=== PATIENT | female | born 1930 | race Caucasian/White ===

== ENCOUNTER 2017-01-07 09:55 | Outpatient (CLI) | payer OTHER ==
[~2017-01-07 09:55] MED LIST: ESCI20TA PO; LIP20 PO; LISI-600 PO
== END 2017-01-07 21:08 | disposition home or self-care (01) ==
LOC: SMA 09:55
PROVIDERS: ATTEND Obstetrics & Gynecology
DX: Z12.31 Encounter for screening mammogram for malignant neoplasm of breast (principal)
CPT/HCPCS: G0202

== ENCOUNTER 2019-01-08 03:34 | Inpatient (IN) | payer OTHER ==
[~2019-01-08] VITALS: Ht 152.4 cm; Wt 41.5 kg
[2019-01-08] VITALS (7 sets, daily range): BP systolic 124–163
[2019-01-08] MEDS ORDERED: CLOP300T2 PO (03:54)
[2019-01-08] MEDS ORDERED: CALC-823 PO (03:54)
[2019-01-08] MEDS ORDERED: LIP10 PO (03:54)
[2019-01-08] MEDS ORDERED: LAMO25TA PO (03:54)
[2019-01-08] MEDS ORDERED: COR12.5 PO (03:54)
[2019-01-08] MEDS ORDERED: FERR140T2 PO (03:54)
[2019-01-08] MEDS ORDERED: NOR10 PO (03:54)
[2019-01-08] MEDS ORDERED: LEVE1000 PO (03:54)
[2019-01-08] MEDS ORDERED: MULT-1117 PO (03:54)
[2019-01-08] MEDS ORDERED: MEGE40TA PO (03:54)
[2019-01-08] MEDS ORDERED: FURO20TA4 PO (04:06)
[2019-01-08] MEDS ORDERED: IPRATROPIUM/ALBUTEROL SULFATE 3 ML AMPUL.NEB (DUONEB) INH ONE (04:30)
[2019-01-08] MEDS ORDERED: methylPREDNISolone SOD SUCC/PF 62.5 MG/ML VIAL IVP ONE ×2 (04:30→10:45)
[2019-01-08 04:32] LABS: BASOPHILS # (AUTO) 0.1 K/uL (0.0-0.2); BASOPHILS % (AUTO) 0.6 % (0.0-2.0); EOSINOPHILS # (AUTO) 0.4 K/uL (0.0-0.4); EOSINOPHILS % (AUTO) 2.5 % (0.0-4.0); HEMATOCRIT 22.3 % (36-48); HEMOGLOBIN 7.5 g/dL (12.0-16.0); LYMPHOCYTES # (AUTO) 0.9 K/uL (1.0-5.5); LYMPHOCYTES % (AUTO) 5.7 % (20.5-51.5); MEAN CORPUSCULAR HEMOGLOBIN 27 pg (27-31); MEAN CORPUSCULAR HGB CONC 34 % (32-36); MEAN CORPUSCULAR VOLUME 81 fL (79.0-98.0); MONOCYTES # (AUTO) 2.5 K/uL (0.0-1.0); MONOCYTES % (AUTO) 16.6 % (1.7-9.3); NEUTROPHILS # (AUTO) 11.4 K/uL (1.8-7.7); NEUTROPHILS % (AUTO) 74.6 % (40.0-70.0); PLATELET COUNT (AUTO) 192 K/uL (130-430); RED BLOOD CELL COUNT(AUTO) 2.75 MIL/uL (4.2-6.2); RED CELL DISTRIBUTION WIDTH 14.8 % (9.0-15.0); WHITE BLOOD COUNT (AUTO) 15.3 K/uL (4.8-10.8)
[2019-01-08 04:44] LABS: INR 0.9 (0.8-1.2); PROTHROMBIN TIME 9.6 SECS (9.5-12.5)
[2019-01-08] MEDS ORDERED: PIPERACILLIN/TAZO 3.375 GM in NS 50 ML IV ONE (04:45)
[2019-01-08] MEDS ORDERED: PIPERACILLIN/TAZOBACTAM 3.375 GM/VIAL (ZOSYN) IV ONE (04:56)
[2019-01-08 05:02] LABS: ALANINE AMINOTRANSFERASE 31 U/L (12-78); ALBUMIN 2.8 g/dL (3.4-4.8); ANION GAP 12 (5-15); ASPARTATE AMINOTRANSFERASE 21 U/L (10-37); CALCIUM 9.6 mg/dL (8.4-11.0); CHLORIDE 98 mmol/L (98-107); CREATININE 1.93 mg/dL (0.55-1.30); GLUCOSE 112 mg/dL (70-99); POTASSIUM 3.6 mmol/L (3.5-5.1); SODIUM SERUM 135 mmol/L (136-145); TOTAL BILIRUBIN 0.4 mg/dL (0.0-1.0)
[2019-01-08 05:25] LABS: UREA NITROGEN, BLOOD 35 mg/dL (8-21)
[2019-01-08] MEDS ORDERED: NACL 0.9% 1,000 ML IV ONE (05:30)
[2019-01-08] MEDS ORDERED: VANCOMYCIN HCL 1,000 MG in NS 250 ML IV ONE (05:30)
[2019-01-08] MEDS ORDERED: VANCOMYCIN HCL 1000 MG/VIAL IV ONE (05:40)
[2019-01-08] MEDS ORDERED: *HEPARIN PER PHARMACY XX PRN (06:15)
[2019-01-08] MEDS ORDERED: ALBUTEROL SULFATE 0.083% 2.5 MG/3 ML VIAL.NEB INH SCH (07:00)
[2019-01-08] MEDS ORDERED: HEPARIN SODIUM,PORCINE 5000 UNITS/ML VIAL IV ONE (08:15)
[2019-01-08] MEDS ORDERED: HEPARIN SODIUM,PORCINE 2000 UNITS/0.4 ML BOLUS IVP PRN (08:15)
[2019-01-08] MEDS ORDERED: HEPARIN SODIUM,PORCINE 3000 UNITS/0.6 ML BOLUS IVP PRN (08:15)
[2019-01-08] MEDS ORDERED: HEPARIN SODIUM,PORCINE 5000 UNITS/ML VIAL SUBCUT ONE (08:15)
[2019-01-08] MEDS ORDERED: FUROSEMIDE 20 MG/2 ML VIAL IVP ONE (09:45)
[2019-01-08] MEDS ORDERED: IPRATROPIUM BROM 0.5 MG/2.5 ML VIAL.NEB (ATROVENT) INH SCH (09:45)
[2019-01-08] MEDS ORDERED: IPRATROPIUM BROM 0.5 MG/2.5 ML VIAL.NEB (ATROVENT) INH PRN (09:45)
[2019-01-08] MEDS ORDERED: ALBUTEROL SULFATE 0.083% 2.5 MG/3 ML VIAL.NEB INH PRN (09:45)
[2019-01-08] MEDS: HEPARIN 25,000 UNITS in 250 ML PREMIX IV PRN ×2 (10:34→17:52)
[2019-01-08] MEDS: cefTRIAXone 1 GM in D5W 50 ML IV SCH (10:56)
[2019-01-08] MEDS ORDERED: CARVEDILOL 12.5 MG TABLET (COREG) PO ONE (11:00)
[2019-01-08] MEDS ORDERED: levETIRAcetam 500 MG TABLET PO ONE (11:00)
[2019-01-08] MEDS ORDERED: amLODIPine BESYLATE 10 MG TABLET PO ONE (11:00)
[2019-01-08] MEDS ORDERED: LamoTRIgine 25 MG TABLET PO ONE (11:00)
[2019-01-08] MEDS: AZITHROMYCIN 500 MG in NS 250 ML IV SCH (11:43)
[2019-01-08] MEDS: IPRATROPIUM BROM 0.5 MG/2.5 ML VIAL.NEB (ATROVENT) INH SCH ×2 (13:48→19:16)
[2019-01-08] MEDS: ALBUTEROL SULFATE 0.083% 2.5 MG/3 ML VIAL.NEB INH SCH ×2 (13:48→19:16)
[2019-01-08] MEDS: methylPREDNISolone SOD SUCC/PF 62.5 MG/ML VIAL IVP SCH ×2 (14:18→22:11)
[2019-01-08] MEDS: LamoTRIgine 25 MG TABLET PO SCH (20:49)
[2019-01-08] MEDS: levETIRAcetam 500 MG TABLET PO SCH (20:50)
[2019-01-08] MEDS: CARVEDILOL 12.5 MG TABLET (COREG) PO SCH (20:50)
[2019-01-09 00:20] VITALS: BP_SYST 117
[2019-01-09] MEDS: ALBUTEROL SULFATE 0.083% 2.5 MG/3 ML VIAL.NEB INH SCH ×4 (00:44→19:48)
[2019-01-09] MEDS: IPRATROPIUM BROM 0.5 MG/2.5 ML VIAL.NEB (ATROVENT) INH SCH ×4 (00:45→19:48)
[2019-01-09 02:46] LABS: TOTAL IRON BIND. CAPACITY 238 ug/dL (250-450)
[2019-01-09] MEDS: methylPREDNISolone SOD SUCC/PF 62.5 MG/ML VIAL IVP SCH (06:08)
[2019-01-09 06:53] LABS: BASOPHILS % (AUTO) 0.2 % (0.0-2.0); EOSINOPHILS % (AUTO) 0.1 % (0.0-4.0); LYMPHOCYTES # (AUTO) 0.4 K/uL (1.0-5.5); LYMPHOCYTES % (AUTO) 2.6 % (20.5-51.5); MEAN CORPUSCULAR HEMOGLOBIN 27 pg (27-31); MEAN CORPUSCULAR HGB CONC 34 % (32-36); MEAN CORPUSCULAR VOLUME 81 fL (79.0-98.0); MONOCYTES # (AUTO) 1.2 K/uL (0.0-1.0); MONOCYTES % (AUTO) 7.9 % (1.7-9.3); NEUTROPHILS # (AUTO) 13.6 K/uL (1.8-7.7); PLATELET COUNT (AUTO) 176 K/uL (130-430); RED BLOOD CELL COUNT(AUTO) 2.32 MIL/uL (4.2-6.2); RED CELL DISTRIBUTION WIDTH 14.6 % (9.0-15.0); WHITE BLOOD COUNT (AUTO) 15.3 K/uL (4.8-10.8)
[2019-01-09 06:55] LABS: ALANINE AMINOTRANSFERASE 25 U/L (12-78); ALBUMIN 2.5 g/dL (3.4-4.8); ANION GAP 10 (5-15); ASPARTATE AMINOTRANSFERASE 19 U/L (10-37); CALCIUM 8.1 mg/dL (8.4-11.0); CHLORIDE 98 mmol/L (98-107); CREATININE 1.99 mg/dL (0.55-1.30); GLUCOSE 146 mg/dL (70-99); LACTATE DEHYDROGENASE 219 U/L (81-234); POTASSIUM 3.8 mmol/L (3.5-5.1); SODIUM SERUM 130 mmol/L (136-145); THYROID STIMULATING HORMONE 1.14 uIu/mL (0.34-4.82); TOTAL BILIRUBIN 0.3 mg/dL (0.0-1.0); UREA NITROGEN, BLOOD 42 mg/dL (8-21)
[2019-01-09 07:14] LABS: HEMOGLOBIN 6.3 g/dL (12.0-16.0)
[2019-01-09 07:15] LABS: HEMATOCRIT 18.8 % (36-48)
[2019-01-09 08:07] LABS: NEUTROPHILS % (AUTO) 89.2 % (40.0-70.0)
[2019-01-09 08:19] VITALS: BP_SYST 145
[2019-01-09] MEDS: ATORVASTATIN 10 MG TABLET PO SCH (08:52)
[2019-01-09] MEDS: LamoTRIgine 25 MG TABLET PO SCH ×2 (08:52→21:40)
[2019-01-09] MEDS: levETIRAcetam 500 MG TABLET PO SCH ×2 (08:52→21:40)
[2019-01-09] MEDS: FERROUS SULFATE 140 MG TABLET.ER PO SCH (08:52)
[2019-01-09] MEDS: amLODIPine BESYLATE 10 MG TABLET PO SCH (08:53)
[2019-01-09] MEDS: cefTRIAXone 1 GM in D5W 50 ML IV SCH (08:53)
[2019-01-09] MEDS: CARVEDILOL 12.5 MG TABLET (COREG) PO SCH ×2 (08:53→21:40)
[2019-01-09] MEDS: CLOPIDOGREL BISULFATE 75 MG TABLET PO SCH (09:00)
[2019-01-09] MEDS: AZITHROMYCIN 500 MG in NS 250 ML IV SCH (09:58)
[2019-01-09] MEDS ORDERED: FUROSEMIDE 40 MG/4 ML VIAL IVP ONE (10:15)
[2019-01-09 12:21] VITALS: BP_SYST 100
[2019-01-09 15:37] LABS: HEMATOCRIT 24.6 % (36-48); HEMOGLOBIN 8.3 g/dL (12.0-16.0); MEAN CORPUSCULAR HEMOGLOBIN 28 pg (27-31); MEAN CORPUSCULAR HGB CONC 34 % (32-36); MEAN CORPUSCULAR VOLUME 82 fL (79.0-98.0); PLATELET COUNT (AUTO) 184 K/uL (130-430); RED BLOOD CELL COUNT(AUTO) 3.01 MIL/uL (4.2-6.2); RED CELL DISTRIBUTION WIDTH 15.1 % (9.0-15.0); WHITE BLOOD COUNT (AUTO) 16.7 K/uL (4.8-10.8)
[2019-01-09 16:05] VITALS: BP_SYST 136
[2019-01-09 16:59] LABS: BAND % (MANUAL) 3 % (0-6); BASOPHILS % (MANUAL) 0 % (0-2); EOSINOPHILS % (MANUAL) 0 % (0-7); LYMPHOCYTES % (MANUAL) 0 % (20-46); MONOCYTES % (MANUAL) 7 % (0-11)
[2019-01-09] MEDS: methylPREDNISolone SOD SUCC 40 MG/ML VIAL IVP SCH (18:16)
[2019-01-09 20:00] VITALS: BP_SYST 142
[2019-01-10 00:11] VITALS: BP_SYST 133
[2019-01-10] MEDS: ALBUTEROL SULFATE 0.083% 2.5 MG/3 ML VIAL.NEB INH SCH ×4 (00:56→20:05)
[2019-01-10] MEDS: IPRATROPIUM BROM 0.5 MG/2.5 ML VIAL.NEB (ATROVENT) INH SCH ×4 (00:57→20:05)
[2019-01-10] MEDS: methylPREDNISolone SOD SUCC 40 MG/ML VIAL IVP SCH (06:26)
[2019-01-10 07:10] LABS: BASOPHILS % (AUTO) 0.2 % (0.0-2.0); EOSINOPHILS % (AUTO) 0.2 % (0.0-4.0); HEMOGLOBIN 8.4 g/dL (12.0-16.0); LYMPHOCYTES # (AUTO) 0.6 K/uL (1.0-5.5); LYMPHOCYTES % (AUTO) 3.2 % (20.5-51.5); MEAN CORPUSCULAR HEMOGLOBIN 28 pg (27-31); MEAN CORPUSCULAR HGB CONC 34 % (32-36); MEAN CORPUSCULAR VOLUME 82 fL (79.0-98.0); MONOCYTES # (AUTO) 1.9 K/uL (0.0-1.0); MONOCYTES % (AUTO) 10.7 % (1.7-9.3); NEUTROPHILS # (AUTO) 14.9 K/uL (1.8-7.7); PLATELET COUNT (AUTO) 183 K/uL (130-430); RED BLOOD CELL COUNT(AUTO) 3.05 MIL/uL (4.2-6.2); RED CELL DISTRIBUTION WIDTH 14.9 % (9.0-15.0); WHITE BLOOD COUNT (AUTO) 17.4 K/uL (4.8-10.8)
[2019-01-10 07:24] LABS: ANION GAP 12 (5-15); CALCIUM 8.1 mg/dL (8.4-11.0); CHLORIDE 99 mmol/L (98-107); CREATININE 2.19 mg/dL (0.55-1.30); GLUCOSE 118 mg/dL (70-99); POTASSIUM 4.3 mmol/L (3.5-5.1); SODIUM SERUM 133 mmol/L (136-145); UREA NITROGEN, BLOOD 52 mg/dL (8-21)
[2019-01-10 07:55] LABS: NEUTROPHILS % (AUTO) 85.7 % (40.0-70.0)
[2019-01-10] MEDS: cefTRIAXone 1 GM in D5W 50 ML IV SCH (08:25)
[2019-01-10] MEDS: amLODIPine BESYLATE 10 MG TABLET PO SCH (08:26)
[2019-01-10] MEDS: CLOPIDOGREL BISULFATE 75 MG TABLET PO SCH (08:26)
[2019-01-10] MEDS: LamoTRIgine 25 MG TABLET PO SCH ×2 (08:27→21:11)
[2019-01-10] MEDS: ATORVASTATIN 10 MG TABLET PO SCH (08:27)
[2019-01-10] MEDS: levETIRAcetam 500 MG TABLET PO SCH ×2 (08:28→21:10)
[2019-01-10] MEDS: CARVEDILOL 12.5 MG TABLET (COREG) PO SCH ×2 (08:28→21:11)
[2019-01-10] MEDS: FERROUS SULFATE 140 MG TABLET.ER PO SCH (08:28)
[2019-01-10 08:40] VITALS: BP_SYST 159
[2019-01-10] MEDS: AZITHROMYCIN 500 MG in NS 250 ML IV SCH (09:51)
[2019-01-10] MEDS ORDERED: FUROSEMIDE 20 MG TABLET PO ONE (10:00)
[2019-01-10 11:35] VITALS: BP_SYST 132
[2019-01-10 14:39] LABS: BASOPHILS # (AUTO) 0.1 K/uL (0.0-0.2); BASOPHILS % (AUTO) 0.3 % (0.0-2.0); EOSINOPHILS % (AUTO) 0.2 % (0.0-4.0); HEMATOCRIT 25.1 % (36-48); HEMOGLOBIN 8.4 g/dL (12.0-16.0); LYMPHOCYTES # (AUTO) 0.2 K/uL (1.0-5.5); LYMPHOCYTES % (AUTO) 1.2 % (20.5-51.5); MEAN CORPUSCULAR HEMOGLOBIN 27 pg (27-31); MEAN CORPUSCULAR HGB CONC 34 % (32-36); MEAN CORPUSCULAR VOLUME 82 fL (79.0-98.0); MONOCYTES # (AUTO) 1.9 K/uL (0.0-1.0); MONOCYTES % (AUTO) 9.5 % (1.7-9.3); NEUTROPHILS # (AUTO) 17.3 K/uL (1.8-7.7); NEUTROPHILS % (AUTO) 88.8 % (40.0-70.0); PLATELET COUNT (AUTO) 202 K/uL (130-430); RED BLOOD CELL COUNT(AUTO) 3.08 MIL/uL (4.2-6.2); RED CELL DISTRIBUTION WIDTH 15.3 % (9.0-15.0); WHITE BLOOD COUNT (AUTO) 19.5 K/uL (4.8-10.8)
[2019-01-10 15:53] VITALS: BP_SYST 134
[2019-01-10 20:00] VITALS: BP_SYST 143
[2019-01-10] MEDS ORDERED: HEPARIN SODIUM,PORCINE 5000 UNITS/ML VIAL SUBCUT SCH (21:00)
[2019-01-10 23:47] VITALS: BP_SYST 130
[2019-01-11] MEDS: IPRATROPIUM BROM 0.5 MG/2.5 ML VIAL.NEB (ATROVENT) INH SCH ×4 (00:56→20:48)
[2019-01-11] MEDS: ALBUTEROL SULFATE 0.083% 2.5 MG/3 ML VIAL.NEB INH SCH ×4 (00:56→20:48)
[2019-01-11 02:07] LABS: FOLATE (FOLIC ACID) >20.0 ng/mL (>3.0)
[2019-01-11 06:25] LABS: BASOPHILS # (AUTO) 0.1 K/uL (0.0-0.2); BASOPHILS % (AUTO) 0.3 % (0.0-2.0); EOSINOPHILS # (AUTO) 0.1 K/uL (0.0-0.4); EOSINOPHILS % (AUTO) 0.6 % (0.0-4.0); HEMATOCRIT 26.6 % (36-48); HEMOGLOBIN 8.8 g/dL (12.0-16.0); LYMPHOCYTES # (AUTO) 0.9 K/uL (1.0-5.5); LYMPHOCYTES % (AUTO) 4.7 % (20.5-51.5); MEAN CORPUSCULAR HEMOGLOBIN 28 pg (27-31); MEAN CORPUSCULAR HGB CONC 33 % (32-36); MEAN CORPUSCULAR VOLUME 83 fL (79.0-98.0); MONOCYTES # (AUTO) 3.6 K/uL (0.0-1.0); MONOCYTES % (AUTO) 19.5 % (1.7-9.3); NEUTROPHILS # (AUTO) 13.8 K/uL (1.8-7.7); PLATELET COUNT (AUTO) 194 K/uL (130-430); RED BLOOD CELL COUNT(AUTO) 3.22 MIL/uL (4.2-6.2); RED CELL DISTRIBUTION WIDTH 15.4 % (9.0-15.0); WHITE BLOOD COUNT (AUTO) 18.4 K/uL (4.8-10.8)
[2019-01-11 07:26] LABS: ALANINE AMINOTRANSFERASE 42 U/L (12-78); ALBUMIN 2.8 g/dL (3.4-4.8); ANION GAP 10 (5-15); ASPARTATE AMINOTRANSFERASE 27 U/L (10-37); CALCIUM 7.8 mg/dL (8.4-11.0); CHLORIDE 102 mmol/L (98-107); CREATININE 2.03 mg/dL (0.55-1.30); GLUCOSE 92 mg/dL (70-99); POTASSIUM 3.7 mmol/L (3.5-5.1); SODIUM SERUM 135 mmol/L (136-145); TOTAL BILIRUBIN 0.3 mg/dL (0.0-1.0); UREA NITROGEN, BLOOD 53 mg/dL (8-21)
[2019-01-11 07:45] VITALS: BP_SYST 141
[2019-01-11] MEDS: LamoTRIgine 25 MG TABLET PO SCH ×2 (08:39→22:58)
[2019-01-11] MEDS: levETIRAcetam 500 MG TABLET PO SCH ×2 (08:39→22:59)
[2019-01-11] MEDS: cefTRIAXone 1 GM in D5W 50 ML IV SCH (09:21)
[2019-01-11] MEDS: ATORVASTATIN 10 MG TABLET PO SCH (09:21)
[2019-01-11] MEDS: FUROSEMIDE 20 MG TABLET PO SCH (09:22)
[2019-01-11] MEDS: amLODIPine BESYLATE 10 MG TABLET PO SCH (09:23)
[2019-01-11] MEDS: FERROUS SULFATE 140 MG TABLET.ER PO SCH (09:23)
[2019-01-11] MEDS: CARVEDILOL 12.5 MG TABLET (COREG) PO SCH ×2 (09:23→22:58)
[2019-01-11 09:58] LABS: NEUTROPHILS % (AUTO) 74.9 % (40.0-70.0)
[2019-01-11] MEDS: AZITHROMYCIN 500 MG in NS 250 ML IV SCH (10:16)
[2019-01-11 12:20] VITALS: BP_SYST 151
[2019-01-11 14:38] LABS: FERRITIN 1114 ng/mL (15-150)
[2019-01-11] MEDS ORDERED: LORazepam 2 MG/ML VIAL IVP ONE (16:15)
[2019-01-11] MEDS ORDERED: LORazepam 2 MG/ML VIAL ONE (16:17)
[2019-01-11 16:20] VITALS: BP_SYST 141
[2019-01-11 17:00] VITALS: BP_SYST 147
[2019-01-11] MEDS ORDERED: LORazepam 2 MG/ML VIAL IVP PRN (18:00)
[2019-01-11 20:00] VITALS: BP_SYST 149
[2019-01-12 00:42] VITALS: BP_SYST 139
[2019-01-12] MEDS: ALBUTEROL SULFATE 0.083% 2.5 MG/3 ML VIAL.NEB INH SCH ×3 (02:45→15:43)
[2019-01-12] MEDS: IPRATROPIUM BROM 0.5 MG/2.5 ML VIAL.NEB (ATROVENT) INH SCH ×3 (02:45→15:44)
[2019-01-12 08:27] VITALS: BP_SYST 149
[2019-01-12] MEDS: cefTRIAXone 1 GM in D5W 50 ML IV SCH (08:29)
[2019-01-12] MEDS: FERROUS SULFATE 140 MG TABLET.ER PO SCH (08:30)
[2019-01-12] MEDS: LamoTRIgine 25 MG TABLET PO SCH (08:30)
[2019-01-12] MEDS: levETIRAcetam 500 MG TABLET PO SCH (08:30)
[2019-01-12] MEDS: ATORVASTATIN 10 MG TABLET PO SCH (08:30)
[2019-01-12] MEDS: FUROSEMIDE 20 MG TABLET PO SCH (08:30)
[2019-01-12] MEDS: amLODIPine BESYLATE 10 MG TABLET PO SCH (08:31)
[2019-01-12] MEDS: CARVEDILOL 12.5 MG TABLET (COREG) PO SCH (08:31)
[2019-01-12] MEDS: AZITHROMYCIN 500 MG in NS 250 ML IV SCH (09:41)
[2019-01-12] MEDS ORDERED: ACETAMINOPHEN 325 MG TABLET PO PRN (11:00)
[2019-01-12 12:22] VITALS: BP_SYST 101
[2019-01-12 14:10] VITALS: BP_SYST 101
[2019-01-12 16:34] VITALS: BP_SYST 143
[2019-01-12] MEDS ORDERED: HEPARIN SODIUM,PORCINE 5000 UNITS/ML VIAL SUBCUT SCH (21:00)
[2019-01-13] MEDS ORDERED: cefTRIAXone 1 GM in D5W 50 ML IV SCH (09:00)
[2019-01-13] MEDS ORDERED: AZITHROMYCIN 500 MG in NS 250 ML IV SCH (10:00)
== END 2019-01-12 16:45 | DRG 291 ==
LOC: SED 03:34 → STU 06:05 → SMU 01-12 10:10
PROVIDERS: ADMIT Internal Medicine Hospice and Palliative Medicine; ATTEND Internal Medicine Hospice and Palliative Medicine
PROC: 30233N1 Transfusion of Nonautologous Red Blood Cells into Peripheral Vein, Percutaneous Approach (ICD-10-PCS; principal; 2019-01-09)
DX: I13.0 Hypertensive heart and chronic kidney disease with heart failure and stage 1 through stage 4 chronic kidney disease, or unspecified chronic kidney disease (principal); I50.31 Acute diastolic (congestive) heart failure; J18.1 Lobar pneumonia, unspecified organism; R65.11 Systemic inflammatory response syndrome (SIRS) of non-infectious origin with acute organ dysfunction; N17.9 Acute kidney failure, unspecified; E87.1 Hypo-osmolality and hyponatremia; J44.0 Chronic obstructive pulmonary disease with (acute) lower respiratory infection; J91.8 Pleural effusion in other conditions classified elsewhere; E78.5 Hyperlipidemia, unspecified; G40.909 Epilepsy, unspecified, not intractable, without status epilepticus; D50.9 Iron deficiency anemia, unspecified; N18.9 Chronic kidney disease, unspecified; Z79.899 Other long term (current) drug therapy; Z87.891 Personal history of nicotine dependence
CPT/HCPCS: 36415; 71045; 80048; 80053; 82272; 82607; 82728; 82746; 83540-TC; 83550-TC; 83615-TC; 83880; 84443-TC; 84484; 85007; 85025; 85027; 85379; 85610-TC; 85730-TC; 86886; 86900; 86901; 86920; 87040-TC; 87081; 93005; 93306; 93970; 94640; 94760; 95816; 96365; 96366; 96367; 96375; 97110-GP; 97116-GP; 97530-GP; 99285; G0378; J0456; J0696; J1030; J1644; J1940; J2060; J2543; J2930; J3370; J7040; J7050; J7060; J7613; J7620; P9021

== ENCOUNTER 2019-01-17 19:16 | Emergency (ER) | payer OTHER ==
[~2019-01-17] VITALS: Ht 165.1 cm; Wt 77.1 kg
[~2019-01-17 19:16] MED LIST changes: +CLOP300T2 PO; +COR12.5 PO; -ESCI20TA PO; +FERR140T2 PO; +FURO20TA4 PO; +LAMO25TA PO; +LEVE1000 PO; +LIP10 PO; -LIP20 PO; -LISI-600 PO; +NOR10 PO
[2019-01-17 19:30] VITALS: BP_SYST 154
--- NOTE | 2019-01-17 19:30 | NUR ---
Patient to ER bed 08 to gown for evaluation. Side rails up. Report given to Nadine FISHER.
--- NOTE | 2019-01-17 19:35 | NUR ---
Pt came in by BLS from intermediate. Pt had a siezure this morning aroung 0730 this morning. Pt has had no repeat seizure activity. Pt has no s/s of distress. Pt denies pain, N/V/D. Pt is A&Ox3. Pt denies headache, or blurry vision. WIll continue to monitor.
--- NOTE | 2019-01-17 20:05 | NUR ---
JONAS Dasilva at bedside examining patient.
--- NOTE | 2019-01-17 21:00 | NUR ---
Pt is sleeping comfortably in [facility]. No s/s of distress.
[2019-01-17 21:04] LABS: ANION GAP 9 (5-15); CALCIUM 8.9 mg/dL (8.4-11.0); CHLORIDE 104 mmol/L (98-107); CREATININE 2.08 mg/dL (0.55-1.30); GLUCOSE 90 mg/dL (70-99); POTASSIUM 3.3 mmol/L (3.5-5.1); SODIUM SERUM 138 mmol/L (136-145); UREA NITROGEN, BLOOD 27 mg/dL (8-21)
[2019-01-17 21:08] LABS: ALANINE AMINOTRANSFERASE 45 U/L (12-78); ALBUMIN 2.9 g/dL (3.4-4.8); ASPARTATE AMINOTRANSFERASE 36 U/L (10-37); TOTAL BILIRUBIN 0.4 mg/dL (0.0-1.0)
[2019-01-17 21:18] LABS: HEMATOCRIT 28.1 % (36-48); HEMOGLOBIN 9.3 g/dL (12.0-16.0); MEAN CORPUSCULAR HEMOGLOBIN 27 pg (27-31); MEAN CORPUSCULAR HGB CONC 33 % (32-36); MEAN CORPUSCULAR VOLUME 82 fL (79.0-98.0); RED BLOOD CELL COUNT(AUTO) 3.41 MIL/uL (4.2-6.2); RED CELL DISTRIBUTION WIDTH 15.4 % (9.0-15.0); WHITE BLOOD COUNT (AUTO) 12.9 K/uL (4.8-10.8)
[2019-01-17 21:24] LABS: PLATELET COUNT (AUTO) 133 K/uL (130-430)
[2019-01-17] MEDS ORDERED: POTASSIUM CHLORIDE 10 MEQ TAB.PRT.SR PO ONE (21:30)
[2019-01-17 21:45] LABS: ATYPICAL LYMPHOCYTES % 0 % (0-0); BAND % (MANUAL) 5 % (0-6); BASOPHILS % (MANUAL) 0 % (0-2); EOSINOPHILS % (MANUAL) 7 % (0-7); LYMPHOCYTES % (MANUAL) 5 % (20-46); MONOCYTES % (MANUAL) 7 % (0-11)
--- NOTE | 2019-01-17 22:00 | NUR ---
Patient is sleeping comfortably in gurney. No s/s of distress.
--- NOTE | 2019-01-17 23:15 | NUR ---
Patient is resting comfortably. Received potassium PO tolerating well.
--- NOTE | 2019-01-17 23:40 | NUR ---
Report given to Charge nurse at [facility]. ETA for pt pickup is 2350.
--- NOTE | 2019-01-17 23:42 | NUR ---
called daughter to update her about her mother.
[2019-01-18 00:19] VITALS: BP_SYST 173
--- NOTE | 2019-01-18 00:19 | NUR ---
Patient given written and verbal discharge instructions and verbalizes understanding. ER MD discussed with patient the results and treatment provided. Patient in stable condition. ID arm band removed. Patient educated on pain management and to follow up with PMD. Pain Scale 0/10. Opportunity for questions provided and answered. Medication side effect fact sheet provided.
[2019-01-18 01:32] LABS: BILIRUBIN,URINE NEGATIVE (NEGATIVE); BLOOD, URINE 1+ (NEGATIVE); CLARITY/URINE CLEAR (CLEAR); COLOR,URINE YELLOW (YELLOW); GLUCOSE,URINE NEGATIVE (NEGATIVE); KETONES,URINE NEGATIVE (NEGATIVE); LEUKOCYTE ESTERASE ,URINE NEGATIVE (NEGATIVE); NITRITE, URINE NEGATIVE (NEGATIVE); PH,URINE 6.5 (5.0-8.0); PROTEIN URINE 3+ (NEGATIVE); UROBILINOGEN,URINE 0.2 (0.2-1.0)
[2019-01-18 01:36] LABS: BACTERIA,URINE FEW /HPF (None Seen); WBC,URINE 0-3 /HPF (0-3)
== END 2019-01-18 00:19 | disposition home or self-care (01) ==
LOC: SED 19:16
DX: G40.89 Other seizures (principal); E87.6 Hypokalemia; D64.9 Anemia, unspecified; J18.9 Pneumonia, unspecified organism; I10 Essential (primary) hypertension; Z86.79 Personal history of other diseases of the circulatory system; Z79.899 Other long term (current) drug therapy
CPT/HCPCS: 36415; 71045; 80053; 81000-TC; 85007; 85027; 99284